=== PATIENT | female | born 1990 | race Caucasian/White ===

== ENCOUNTER → 2020-03-15 09:25 | Observation (INO) ==
[2020-03-15 06:52] LABS: Amorphous Sediment,Urine Few per hpf (None-Few); Bacteria,Urine Few per hpf (None-Few); Bilirubin,Urine Negative (Negative); Blood,Urine Negative (Negative); Clarity,Urine Clear (Clear); Color,Urine Light-Yellow (Yellow); Glucose,Urine (UA) Normal (Normal); Ketones,Urine Negative (Negative); Leukocyte Esterase,Urine Small (Negative); Mucus,Urine Few per lpf (None-Few); Nitrite,Urine Negative (Negative); Protein,Urine Negative (Neg-Trace); RBC,Urine 0-3 per hpf (0-3); Specific Gravity,Urine 1.009 (1.010-1.025); Squamous Epithelial Cell,Urine Few per hpf (None-Few); Urobilinogen,Urine Normal (Normal)
[~2020-03-15 09:25] MED LIST: EPHEDrine 50 MG/ML VIAL IVP PRN; Epidural Premix (fent/bupiv) 110 ML EP SCH; Ringers Solution, Lactated 1,000 ML IVC ONE; Ringers Solution, Lactated 1,000 ML ONE
== END | disposition home or self-care (01) ==
LOC: 1NENULAB
PROVIDERS: ADMIT Advanced Practice Midwife; ATTEND Advanced Practice Midwife

== ENCOUNTER 2020-04-07 14:23 | Observation (INO) ==
[2020-04-07 15:30] LABS: Basophils % 0.3 %; Eosinophils # 0.1 K/mcL (0.0-0.6); Eosinophils % 0.6 %; Hematocrit 40.8 % (35.3-44.9); Hemoglobin 13.4 g/dL (11.5-15.4); Immature Granulocytes % 0.2 % (0-4); Lymphocytes # 1.4 K/mcL (0.6-4.6); Lymphocytes % 15.4 %; Mean Corpuscular HGB Conc 32.8 g/dL (31.6-35.5); Mean Corpuscular Hemoglobin 29.9 pg (28.0-33.3); Mean Corpuscular Volume 91.1 fL (83.0-100.0); Monocytes # 0.5 K/mcL (0.0-1.3); Monocytes % 5.8 %; Platelet Count 201 K/mcL (140-400); Red Blood Count 4.48 M/mcL (3.82-4.97); Red Cell Distribution Width 12.9 % (11.5-14.5); Segmented Neutrophils % 77.7 %
[2020-04-07 15:52] LABS: Protein/Creatinine Ratio,Urine 0.24 mg/mg (0.00-0.20)
[2020-04-07 15:59] LABS: Alanine Aminotransferase 10 Units/L (7-52); Aspartate Amino Transferase 13 Units/L (13-39); BUN/Creatinine Ratio 10 (6-26); Blood Urea Nitrogen 5 mg/dL (6-20); Lactate Dehydrogenase 131 Units/L (140-271); Uric Acid 3.5 mg/dL (2.3-7.6); eGFR For African Americans > 60 (> 60); eGFR For Non-African Americans > 60 (> 60)
== END 2020-04-07 16:28 | disposition home or self-care (01) ==
LOC: 1NENULAB 14:23 → INTOOBSV 14:23
PROVIDERS: ADMIT Obstetrics & Gynecology; ATTEND Obstetrics & Gynecology

== ENCOUNTER 2020-04-09 14:00 | Inpatient (IN) ==
[2020-04-09] MEDS ORDERED: Famotidine 20 MG/2 ML VIAL IVP PRN (14:07)
[2020-04-09] MEDS ORDERED: Naloxone 0.4 MG/ML INJ IVP PRN (14:07)
[2020-04-09] MEDS ORDERED: Metoclopramide 10 MG/2 ML VIAL IVP PRN (14:07)
[2020-04-09] MEDS ORDERED: Ringers Solution, Lactated 1,000 ML IVC SCH (14:15)
[2020-04-09] MEDS ORDERED: EPHEDrine 50 MG/ML VIAL IVP PRN (14:23)
[2020-04-09] MEDS ORDERED: Epidural Premix (fent/bupiv) 110 ML EP SCH (14:30)
[2020-04-09] MEDS ORDERED: miSOPROStoL 25 MCG TABLET VG PRN (17:24)
[2020-04-09 18:56] LABS: Basophils % 0.4 %; Eosinophils # 0.1 K/mcL (0.0-0.6); Eosinophils % 0.6 %; Hematocrit 40.6 % (35.3-44.9); Hemoglobin 13.3 g/dL (11.5-15.4); Immature Granulocytes % 0.4 % (0-4); Lymphocytes # 1.4 K/mcL (0.6-4.6); Lymphocytes % 14.1 %; Mean Corpuscular HGB Conc 32.8 g/dL (31.6-35.5); Mean Corpuscular Hemoglobin 30.2 pg (28.0-33.3); Mean Corpuscular Volume 92.3 fL (83.0-100.0); Mean Platelet Volume 10.9 fL (9.4-12.4); Monocytes # 0.7 K/mcL (0.0-1.3); Monocytes % 6.7 %; Neutrophils # 7.9 K/mcL (1.6-8.9); Platelet Count 209 K/mcL (140-400); Segmented Neutrophils % 77.8 %; White Blood Count 10.2 K/mcL (4.3-11.1)
[2020-04-09 19:04] LABS: Amphetamine Screen,Urine Negative ng/mL (Cutoff=1000); Barbiturate Screen,Urine Negative ng/mL (Cutoff=200); Benzodiazepines Screen,Urine Negative ng/mL (Cutoff=200); Cannabinoid Screen,Urine Negative ng/mL (Cutoff = 50); Cocaine Screen,Urine Negative ng/mL (Cutoff= 300); Opiate Screen,Urine Negative ng/mL (Cutoff=300); Phencyclidine Screen,Urine Negative ng/mL (Cutoff=25)
[2020-04-10] MEDS ORDERED: *HR* FentaNYL (PF) 100 MCG/2 ML VIAL ONE (01:48)
[2020-04-10] MEDS ORDERED: Ropivacaine/PF 0.2% 20 ML VIAL ONE (01:48)
[2020-04-10] MEDS ORDERED: Oxytocin 20 units/ LR 1000 mL 20 UNIT/1,000 ML BAG IVC SCH (08:45)
[2020-04-10] MEDS ORDERED: Lanolin 7 G OINT...G. TP PRN (08:45)
[2020-04-10] MEDS ORDERED: *HR* HYDROcodone/Acet 5/325 mg TABLET PO PRN (08:45)
[2020-04-10] MEDS ORDERED: Acetaminophen 325 MG TABLET PO PRN (08:45)
[2020-04-10] MEDS ORDERED: Benzocaine/Menthol 56 GM AEROSOL SPRAY TP PRN (08:45)
[2020-04-10] MEDS ORDERED: Sennosides 8.6 MG TABLET PO PRN (08:45)
[2020-04-10] MEDS: Prenatal Vit/FA 1 EACH TABLET PO SCH (09:09)
[2020-04-10] MEDS: Ibuprofen 600 MG TABLET PO PRN (20:08)
[2020-04-11] MEDS: Ibuprofen 600 MG TABLET PO PRN ×2 (02:01→07:55)
[2020-04-11] MEDS: Prenatal Vit/FA 1 EACH TABLET PO SCH (07:58)
[2020-04-11 08:16] VITALS: BP 102/62
[2020-04-11 10:18] LABS: Basophils % 0.4 %; Eosinophils # 0.2 K/mcL (0.0-0.6); Hematocrit 39.8 % (35.3-44.9); Hemoglobin 12.8 g/dL (11.5-15.4); Immature Granulocytes % 0.3 % (0-4); Lymphocytes # 1.6 K/mcL (0.6-4.6); Lymphocytes % 16.4 %; Mean Corpuscular HGB Conc 32.2 g/dL (31.6-35.5); Mean Corpuscular Hemoglobin 29.7 pg (28.0-33.3); Mean Corpuscular Volume 92.3 fL (83.0-100.0); Mean Platelet Volume 10.4 fL (9.4-12.4); Monocytes # 0.6 K/mcL (0.0-1.3); Monocytes % 6.2 %; Neutrophils # 7.4 K/mcL (1.6-8.9); Platelet Count 172 K/mcL (140-400); Red Blood Count 4.31 M/mcL (3.82-4.97); Red Cell Distribution Width 13.1 % (11.5-14.5); Segmented Neutrophils % 74.7 %; White Blood Count 9.9 K/mcL (4.3-11.1)
== END 2020-04-11 10:55 | disposition home or self-care (01) | DRG 560 ==
LOC: 1NENULAB 14:05 → 1NENUOBS 04-10 08:44
PROVIDERS: ADMIT Obstetrics & Gynecology; ATTEND Obstetrics & Gynecology